=== PATIENT | female | born 1975 | race Caucasian/White ===

== ENCOUNTER → 2018-12-27 | Outpatient (CLI) | payer BC | LOC: DIA.ED 11:43 → EDBD 13:59 | DX: E11.9 Type 2 diabetes mellitus without complications (principal); I10 Essential (primary) hypertension; E66.9 Obesity, unspecified | CPT/HCPCS: G0108 ==

== ENCOUNTER → 2019-01-24 | Outpatient (CLI) | payer BC | LOC: DIA.ED 11:26 | DX: E11.9 Type 2 diabetes mellitus without complications (principal); I10 Essential (primary) hypertension; E66.9 Obesity, unspecified | CPT/HCPCS: G0108 ==

== ENCOUNTER → 2020-09-09 | Outpatient (CLI) | payer BC ==
[~2020-09-09] MED LIST: GLUCOPHAGE1000 MG PO; IRON TABLETS325 MG PO; LIPITOR 10MG10 MG PO; SINGULAIR 110 MG/TAB PO; SYEDA 3 MG-0.031 TAB PO; VITAMIN C500 MG PO; ZYRTEC 10MG10 MG PO
== END ==
LOC: MC.RAD 10:47
DX: Z12.31 Encounter for screening mammogram for malignant neoplasm of breast (principal)

== ENCOUNTER 2020-09-12 16:00 | Outpatient (RCR) | payer BC ==
[2020-08-27 16:23] VITALS: BP 135/64; PULSE 99; TEMP 98.1
[2020-09-02 16:09] VITALS: BP 124/80; PULSE 92; TEMP 98.9
[2020-09-05 16:32] VITALS: BP 123/88; PULSE 85; TEMP 99
[2020-09-09 16:12] VITALS: BP 131/83; PULSE 92; TEMP 98.9
[~2020-09-12] VITALS: Ht 167.6 cm; Wt 161.8 kg
[2020-09-12 16:19] VITALS: BP 139/85; PULSE 107; TEMP 99.1
== END 2020-11-25 | disposition still patient (30) ==
LOC: EUO
DX: Z79.899 Other long term (current) drug therapy (principal)
CPT/HCPCS: J1756